=== PATIENT | female | born 1960 | race Caucasian/White ===

== ENCOUNTER 2019-01-25 07:49 | Day surgery (SDC) | payer BC ==
[~2019-01-25 07:49] MED LIST: Sodium Chloride 0.9% 10 ML Syringe FLUSH PRN
[2019-01-25] MEDS ORDERED: Propofol 200 MG/20 ML SDV ONE ×3 (08:11→08:55)
[2019-01-25] MEDS: Lactated Ringers 1,000 ML IV SCH (08:14)
[2019-01-25] MEDS ORDERED: Midazolam 1 MG/ML 2 ML SDV ONE ×2 (08:50→08:55)
--- NOTE | 2019-01-25 09:17 | PCM.HPR ---
H & P Addendum review - H & P Addendum Review Date of Original H & P: 01/16/19 Date Reviewed: 01/25/19 Time Reviewed: 08:50 Patient was Examined: No Changes
--- NOTE | 2019-01-25 09:18 | PCM.OPNOTE ---
- General Post-Op/Procedure Note Date of Surgery/Procedure: 01/25/19 Operative Procedure(s): Colonoscopy Findings: Normal Pre Op Diagnosis: Screening Post-Op Diagnosis: Same Anesthesia Technique: KAMI Primary Surgeon: Jagdish Crane Anesthesia Provider: Mirna Lea Complications: None Condition: Good
--- NOTE | 2019-01-25 15:02 | OR ---
Date of Procedure: 01/25/2019 PREOPERATIVE DIAGNOSIS: Colon screening. POSTOPERATIVE DIAGNOSIS: Normal colonoscopy. PROCEDURE: Colonoscopy. ANESTHESIA: IV sedation. DESCRIPTION OF PROCEDURE: The patient was brought to the procedure room where she was placed on her left side and IV sedation administered. Digital rectal exam was performed which was normal. Colonoscope was inserted and advanced to the level of the cecum without difficulty. Cecal position was confirmed by identifying the appendiceal lumen and the ileocecal valve. Prep was good and surfaces were well visualized. Upon withdrawing the scope, the ascending, transverse, and descending colon were normal in appearance. Sigmoid colon and rectum were normal. Retroflexion was normal. Air was removed and the scope withdrawn. The patient tolerated the procedure well and returned to Recovery in stable condition. Recommended routine colon screening again in 10 years. KATHY CHADWICK MD /[id number]
== END 2019-01-25 10:07 | disposition home or self-care (01) ==
LOC: LL.SDS 07:49
PROVIDERS: ATTEND Surgery
DX: R19.4 Change in bowel habit (principal); Z82.49 Family history of ischemic heart disease and other diseases of the circulatory system; Z79.899 Other long term (current) drug therapy; Z88.8 Allergy status to other drugs, medicaments and biological substances
CPT/HCPCS: J2250; J2704; J7120